=== PATIENT | male | born 1970 | race Caucasian/White ===

== ENCOUNTER 2022-01-21 06:14 | Day surgery (SDC) | payer OTHER ==
[~2022-01-21 06:14] MED LIST: Lactated Ringers 1,000 ML IV SCH
[2022-01-21] MEDS ORDERED: EXPAREL 133 MG/10 ML VIAL IJ ONE (06:15)
[2022-01-21] MEDS ORDERED: XYLOCAINE 1% HCL 20 ML MDV ONE ×2 (06:53→07:53)
[2022-01-21] MEDS ORDERED: BUPIVACAINE 0.5% VIAL IJ ONE ×2 (06:53→08:23)
[2022-01-21] MEDS ORDERED: Lactated Ringers 1,000 ML IV ONE ×3 (07:14→14:25)
[2022-01-21] MEDS ORDERED: DUONEB 0.5-3 MG/3 ml Neb IH ONE (07:27)
[2022-01-21] MEDS ORDERED: CEFAZOLIN 2 GM-D5W BAG** 2 GM/50 ML ML IV SCH (07:30)
[2022-01-21] MEDS ORDERED: OFIRMEV 100 ML IV ONE (07:37)
[2022-01-21] MEDS ORDERED: Pre-Attached Lta Kit TP ONE (07:37)
[2022-01-21] MEDS ORDERED: Decadron 4 MG INJ ONE ×2 (07:41→09:52)
[2022-01-21] MEDS ORDERED: Zofran 4 MG/2 ML VIAL ONE (07:41)
[2022-01-21] MEDS ORDERED: Xylocaine-Mpf 2% 5 Ml Vial ONE (07:41)
[2022-01-21] MEDS ORDERED: DIPRIVAN 200 MG/20 ML IV ONE (07:41)
[2022-01-21] MEDS ORDERED: Quelicin Fliptop 200 MG/10 ML ONE (07:41)
[2022-01-21] MEDS ORDERED: Zemuron 100 MG/10 ML ONE (07:41)
[2022-01-21] MEDS ORDERED: Versed 2 MG/2 ML Injection ONE (07:42)
[2022-01-21] MEDS ORDERED: SUBLIMAZE 250 MCG/5 ML ONE (07:42)
[2022-01-21] MEDS ORDERED: Ketamine HCl 50 MG/ML ONE (07:51)
[2022-01-21] MEDS ORDERED: ROBINUL ONE (08:15)
[2022-01-21] MEDS ORDERED: Ephedrine Sulfate 50 MG/ML ONE ×2 (08:16→11:06)
[2022-01-21] MEDS ORDERED: ATROPINE SULFATE 1MG ONE (08:19)
[2022-01-21] MEDS ORDERED: PHENYLEPHRINE HCL ONE (08:21)
[2022-01-21] MEDS ORDERED: Naropin 0.5% 30 ML VIAL ONE (09:52)
[2022-01-21] MEDS ORDERED: Sensorcaine 0.25% 10 ML ONE (10:47)
[2022-01-21] MEDS ORDERED: KEFZOL 1 GM ONE (11:53)
[2022-01-21] MEDS ORDERED: MORPHINE SULFATE 10 MG/ML ONE (14:05)
--- NOTE | 2022-01-21 14:18 | XRAY ---
Indication: Arthrodesis and 2nd-4th hammertoe correction. Intraoperative fluoroscopy provided for 6 minutes 37 seconds. 20 digital spot images submitted for interpretation ultimately demonstrates 1st tarsometatarsal fusion with intact anterior plates/screws, K wires/screws traversing entire 2nd-4th toes, and single orthopedic screw traversing posterior calcaneus. Correlate with intraoperative findings/report.
[2022-01-21 16:22] VITALS: O2SAT 95
[2022-01-21 16:40] VITALS: BP 123/85; PULSE 82
[2022-01-21 16:58] LABS: Bacteria RARE /HPF (NEGATIVE); RBC 0-2 /HPF (0-2)
[2022-01-21 17:12] LABS: Appearance SLIGHTLY CLOUDY (CLEAR); Bilirubin NEGATIVE (NEGATIVE); Glucose NEGATIVE (NEGATIVE); Ketones NEGATIVE (NEGATIVE); Nitrite NEGATIVE (NEGATIVE); Ph 7.5 (5-6); Protein,Urine Dip 30 (Negative); RBC NEGATIVE Ery/ul (0-5); Specific Gravity 1.015 (1.005-1.025); Urobilinogen 0.2 mg/dL (0-1)
[2022-01-21 17:15] LABS: Dipstick done @ ? MAIN LAB
--- NOTE | 2022-01-24 11:48 | OP ---
SURGERY DATE/TIME: 01/21/2022 0752 PREOPERATIVE DIAGNOSES: 1) Acquired hallux valgus right. 2) Orthopedic hardware in situ. 3) Osteoarthritis of navicular cuneiform joint. 4) Pseudoarthrosis of first tarsometatarsal joint. 5) Acquired pes planus. 6) Gastrocnemius equinus. 7) Hammer toes digits 2, 3, 4. POSTOPERATIVE DIAGNOSES: 1) Acquired hallux valgus right. 2) Orthopedic hardware in situ. 3) Osteoarthritis of navicular cuneiform joint. 4) Pseudoarthrosis of first tarsometatarsal joint. 5) Acquired pes planus. 6) Gastrocnemius equinus. 7) Hammer toes digits 2, 3, 4. PROCEDURES: 1) Gastrocnemius resection. 2) Removal of hardware. 3) Repair of nonunion. 4) Calcaneal autograft. 5) Arthrodesis mid foot multiple joints. 6) Soft tissue balancing of first metaphalangeal joint. 7) Hammer toe correction of digits 2, 3 and 4. SURGEON: Brodie Frey DPM. [employer] DRIVER: None. ANESTHESIA: General plus a postoperative popliteal and saphenous block. HEMOSTASIS: Thigh tourniquet set to 350 mm of Mercury for 120 minutes. ESTIMATED BLOOD LOSS: 250 cc. INJECTABLES: See anesthesia report for details. MATERIALS: Biomet StrataGraft Plus 2 cc. A 4.0 x 40 mm fully threaded compression screw. 5 cc of StrataGraft Plus. A.L.P.S. medial column fusion plate right. MAX VPC screws one - 3.4 mm x 34 mm, one - 3.4 x 30 mm, one - 3.4 x 26 mm and then 3.5 x 44 mm and a 3.5 x 42 mm fully threaded 4.0 mm headed screw. INDICATION FOR SURGERY: Niles is a very pleasant 51-year-old male who had multiple procedures to the right lower extremity in the hopes to correct his bunion deformity. The patient had complications as a result of the surgical intervention leading to a pseudoarthrosis which was not addressed by the next physician that performed surgery. However, the attending physician attempted to correct the metatarsal head and ended up elevating the metatarsal head resulting in a significant metatarsus primus elevatus. The patient also had hammer toe surgeries performed by the first surgeon which showed significant signs of break down and failure. The hardware was removed by the second physician. However, no attempt at fixation was made at that time. The patient was informed that this surgery would likely not result in a perfect appearance however a more functional foot as the patient had resulted in a significant hallux varus deformity resulting in extreme pain with certain types of shoe gear per patient's who indicated that he was in a significant amount of pain. However, he wanted to work. Due to his pain, he recently has lost his job and in consultation was in tears indicating that there were plenty of jobs out there however due to the pain he was unable proceed with working at full-time. The patient at this time wishes to proceed with surgical intervention and understands that no guarantees were provided as to the outcome. There are plenty of consultations that could potentially occur especially due to the fact that the patient has had multiple surgical interventions in the past. The patient understands all risks, benefits and complications of surgical intervention at this time including but not limited to delayed skin healing, nonskin healing, delayed bone healing, nonbone healing, malunion, nonunion, possibility of failure of hardware and need for surgical intervention at a later date. The patient was advised due to the fact that this was his third to fourth revision of the initial surgery that I cannot guarantee results will be perfect. However, I aim to achieve a more functional result than what he had before. The patient understands all of this and wishes to proceed with surgical intervention at this time. DESCRIPTION OF PROCEDURE AND FINDINGS: The patient is brought into the OR and placed on the OR table in the supine position. At this time adequate general anesthesia was administered and the patient's right thigh had a well-padded thigh tourniquet applied to it. At this time the tourniquet was set to 350 mm of Mercury. The right lower extremity was then prepped and draped in the typical sterile fashion and lowered onto the surgical field. At this time attention was directed to the posterior medial aspect of the patient's calf at dell of the gastrocnemius muscle belly. A linear incision was made utilizing a 15 blade and this was followed by a combination of blunt and sharp dissection to reach the crural fascia. The crural fascia was then incised utilizing a 15 blade revealing gastrocnemius aponeurosis, this was cut utilizing a 10 blade being careful not to damage the sural nerve at the lateral aspect. [facility] retractor was utilized to gain full visualization of this and the foot was tested before and after the gastrocneumius resection was complete demonstrating increased ankle range of motion following resection of the gastrocnemius. This was flushed and repaired utilizing 2-0 Vicryl and 3-0 Nylon in a horizontal mattress-type fashion. At this time attention was directed to the dorsal aspect of the foot where the hardware removal portion of the surgery was delineated. A [place] was utilized to identify where the hardware was at the dorsal aspect of the right foot. At this time a linear incision was carried down through significant scar tissue which was debrided and handed off the field for pathological assessment. The entirety of the extensor hallucis longus encapsulated in a thickened scar tissue which was resected and freed from the surgical site. At this time [place] plate was identified and the screws were removed without complication. Then the Peanut plate at the distal aspect of the first metaphalangeal joint was then removed from the distal aspect of the metatarsal head. It was noted here after removing the plate there was a significant amount of metallosis over the dorsal aspect of both the plate sights this was debrided from the surgical site and a pulse lavage was utilized to cleanse the remaining bone. At this time attention was directed to the most proximal aspect of the incision at the navicular cuneiform joint where a distractor was introduced into the navicular and medial cuneiform in order to gain access to this joint. A significant amount of cartilage was removed from the mediolateral and intermediate cuneiforms as well as the distal surface of the navicular this was done with a combination of curved osteotomes, curettes and rongeurs. Once the surface was cleaned with sterile saline, attention was directed to the pseudoarthrosis where a triangular wedge with the wedge faced planterally was removed from the first tarsometatarsal joint in order to plantar flex the first ray after placing the graft this was removed and handed off the field and sent for pathological assessment for the area of pseudoarthrosis/malunion/nonunion. At this time a Pulsavac was utilized once again to cleanse the surgical site of any remaining debris and pseudoarthrosis and cartilage. At this time attention then was directed to the lateral aspect of the calcaneus where a harvest of tricortical wedge of calcaneus was taken this was performed utilizing a 31 mm sagittal saw and a set of curved and straight osteotomes. The site was back filled with 2 cc of StrataGraft and a prophylactic screw to prevent fracture was introduced from the posterior aspect of the calcaneus. At this time the graft was harvested and set aside. Templating was taken place and the decision was made to use the A.L.P.S. locking medial column fusion plate this was checked under fluoroscopy and deemed to be adequate making sure not to interfere with the talonavicular joint and getting across our graft site. The graft was then introduced along with 2 cc of StrataGraft into the deficit of tarsometarsal joint. The position was checked under fluoroscopy where unfortunately we were unable to gain as much length as I would have liked to with the graft. However, we were able to plantar flex the first ray in order to better address the patient's forefoot varus issue. At this time a combination of locking and nonlocking screws were utilized to fixate the plate to the bone and eccentrically compressing the joint from proximal to distal as we proceeded. Once this plate was placed final fluoroscopy shots were taken a fully threaded compression technique was introduced from the medial cuneiform to the lateral cuneiform and then a fully threaded lag technique 3.5 mm headed screw was introduced from the intermediate cuneiform to the navicular gaining compression at the navicular cuneiform joint at this time. Minimal compression was applied across the first tarsometatarsal joint. At this time attention was directed to the first metaphalangeal joint where having just retained some of the length to the first metatarsal and putting it into position where adequate to bring the hallux into a better alignment than before this did still require some soft tissue balancing where a capsulotomy was performed at the medial aspect of the joint and capsulorrhaphy was performed to the lateral aspect of the joint tightening down the lateral aspect of the capsule and straightening out the toe even further this was checked under fluoroscopy and deemed to be adequate. There was improved range of motion of the first metaphalangeal joint at this time. At this time attention then was directed to the digits 2 through 4 where in a similar fashion a horizontal incision was made over the proximal interphalangeal joint. At this time a sagittal saw was utilized to resect out any of the nonunion that was apparent leading to rigid contractures of the digits 2 through 4. The nonunions were then resected ant a K-wire was introduced from middle phalanx to the distal tip of the digit and then retrograded down the proximal phalanx. At this time 2.5 mm VPC compression screws were introduced from distal to proximal with the position of the toes in a adequate position. At this time all incisions were superficially flushed with copious amounts of sterile saline. Closure was achieved utilizing a combination of buried 2-0 Vicryl and 3-0 Nylon for skin closure in a horizontal mattress-type fashion with the exception of the toes which was a simple interrupted-type fashion. Following the procedure the tourniquet was let down at 120 total tourniquet time minutes. Position of the foot was checked under fluoroscopy and deemed to be significantly improved from prior to surgical intervention. Dressing was applied consisting of Betadine, Adaptic, 4x4 and Kerlix. Posterior splint with Sugar-Tong was applied consisting of cast padding and a 4-inch and 6-inch PERRY. The patient then had a popliteal and saphenous block performed and then was reversed from anesthesia and returned to the postoperative anesthesia care unit with vital signs stable and vascular status intact. The patient handled the anesthesia as well as the procedure without complication. The patient's discharge instructions in the patient's chart.
--- NOTE | 2022-01-24 17:09 | XRAY ---
6 minutes 37 seconds of fluoroscopy was used in surgery for a right foot arthrodesis and 2nd-4th hammertoe correction.
== END 2022-01-21 16:50 | disposition home or self-care (01) ==
LOC: SDC 06:14
PROVIDERS: ATTEND Podiatrist Foot & Ankle Surgery
DX: M20.11 Hallux valgus (acquired), right foot (principal); Z96.698 Presence of other orthopedic joint implants; M19.071 Primary osteoarthritis, right ankle and foot; M96.0 Pseudarthrosis after fusion or arthrodesis; M21.41 Flat foot [pes planus] (acquired), right foot; M21.6X1 Other acquired deformities of right foot; M20.41 Other hammer toe(s) (acquired), right foot
CPT/HCPCS: 20680; 20900; 27687; 28285; 28299; 28322; 28730; 64447; 64450; 73620; 76000; 76937; 76942; 81001; 87086; 94640; J0330; J0461; J0690; J1100; J2250; J2270; J2370; J2405; J2704; J2795; J3010; A9270-GY; C1713